=== PATIENT | female | born 1945 | race Caucasian/White ===

== ENCOUNTER → 2020-06-30 | Outpatient (CLI) | payer MEDICARE ==
[~2020-06-30] MED LIST: OMNICEF 300 MG300 MG PO; PREDNISONE20 MG PO; VENTOLIN HFA 66.7 GM INH
== END ==
LOC: EXRD 08:44
DX: M54.5 Low back pain (principal); M25.551 Pain in right hip; M51.36 Other intervertebral disc degeneration, lumbar region
CPT/HCPCS: 72110; 73502

== ENCOUNTER → 2020-12-05 | Outpatient (CLI) | payer MEDICARE | LOC: MAMO 11:06 | DX: Z12.31 Encounter for screening mammogram for malignant neoplasm of breast (principal) | CPT/HCPCS: 77063; 77067 ==

== ENCOUNTER → 2021-01-03 | Outpatient (CLI) | payer MEDICARE | LOC: MAMO 09:46 | DX: R92.8 Other abnormal and inconclusive findings on diagnostic imaging of breast (principal); N63.20 Unspecified lump in the left breast, unspecified quadrant | CPT/HCPCS: 76641-LT; 77065; G0279 ==

== ENCOUNTER → 2021-01-29 | Outpatient (CLI) | payer MEDICARE | LOC: EXRD 10:00 | DX: Z13.820 Encounter for screening for osteoporosis (principal); Z13.6 Encounter for screening for cardiovascular disorders; Z78.0 Asymptomatic menopausal state | CPT/HCPCS: 76706; 77080 ==

== ENCOUNTER → 2021-07-19 | Outpatient (CLI) | payer MEDICARE | LOC: MAMO 07-04 10:00 → US 07-04 10:00 | DX: R92.8 Other abnormal and inconclusive findings on diagnostic imaging of breast (principal) | CPT/HCPCS: 76642-LT; 77065; G0279 ==

== ENCOUNTER → 2022-01-10 | Outpatient (CLI) | payer MEDICARE | LOC: EXRD 09:03 | DX: M79.631 Pain in right forearm (principal); M79.632 Pain in left forearm; M79.642 Pain in left hand; M79.641 Pain in right hand | CPT/HCPCS: 73090; 73110; 73130; 73564 ==

== ENCOUNTER → 2022-01-17 | Outpatient (CLI) | payer MEDICARE | LOC: MAMO 11-29 08:00 → US 11-29 10:00 → MAMO 07:48 | DX: R92.8 Other abnormal and inconclusive findings on diagnostic imaging of breast (principal) | CPT/HCPCS: 76641; 77066; G0279 ==